=== PATIENT | male | born 1985 | race Caucasian/White ===

== ENCOUNTER 2016-09-23 14:35 | Emergency (ER) | payer BC ==
[~2016-09-23] VITALS: Ht 182.9 cm; Wt 83.0 kg
[2016-09-23 14:43] VITALS: TEMP 36.9; Ht 182.9 cm; Wt 83.0 kg
[2016-09-23] MEDS ORDERED: OPTIRAY 320 IV PRN (15:30)
[2016-09-23 15:46] LABS: BASO % 0.2 %; BASO ABS # 0.02 K/uL (0-0.2); COMPLETE YES; EOS % 1.9 %; HEMATOCRIT 45.2 % (42-52); IG% 0.2 %; LYMPH % 29.1 %; LYMPH ABS # 2.48 K/uL (1.2-3.4); MEAN CELL VOLUME 89.9 fL (80-100); MEAN CORPUSCULAR HGB CONC 34.5 g/dl (32-36); MONO % 5.5 %; NEUT % 63.1 %; PLATELET COUNT 235 K/uL (130-400); RED BLOOD COUNT 5.03 M/uL (4.7-6.1); WHITE BLOOD COUNT 8.53 K/uL (4.8-10.8)
[2016-09-23 16:06] LABS: BUN/CREATININE RATIO 17.5 (10-20); CALCIUM 9.1 mg/dl (8.5-10.1); CREATININE 0.83 mg/dl (0.60-1.40); POTASSIUM 4.1 mmol/L (3.5-5.1)
--- NOTE | 2016-09-23 17:00 | DIAGNOSTIC IMAGING REPORT ---
CT SOFT TISSUE NECK WITH CT DOSE: 435.64 mGy.cm CLINICAL HISTORY: mandibular, facial and lip swelling/redness TECHNIQUE: Helical images were acquired during intravenous administration of 94 cc of Optiray 320. COMPARISON STUDY: None. FINDINGS: The visualized portions of the lung apices are unremarkable. No thyroid masses are visualized. No salivary gland masses are visualized. Left sided retromandibular lymph nodes are the upper limits of normal in size. No necrotic lymph nodes are visualized. There are no fluid collections suspicious for abscess. There is no evidence of airway compromise. No mucosal space masses are visualized. There is right maxilla sinus mucosal thickening. There is soft tissue swelling in the perimandibular region. IMPRESSION: 1. No evidence of abscess 2. Soft tissue swelling 3. Left-sided retro-mandibular lymph nodes at the upper limits of normal in size, likely reactive Electronically signed by: Navneet Wynne M.D. 09/23/2016 4:59 PM Dictated Date/Time: 09/23/2016 4:55 PM
[2016-09-23] MEDS ORDERED: HYDR-5688 PO (17:14)
[2016-09-23] MEDS ORDERED: CEPH500C2 PO (17:14)
[2016-09-23] MEDS ORDERED: SULF800T23 PO (17:14)
[2016-09-23 18:34] VITALS: BP 125/71; PULSE 62; O2SAT 98
--- NOTE | 2016-09-24 19:56 | EMERGENCY ROOM VISIT NOTE ---
ED Visit Note First contact with patient: 14:58 Chief Complaint: Facial swelling. History of Present Illness: Mr. Montgomery is a 31-year-old white male who ambulates into the ED complaining of facial swelling. Patient was referred to the ED from a dentist; patient reports he was evaluated and the dentist felt his facial swelling was not related to a dental infection. Historically patient reports he has a previous MRSA infection that he was treated for approximately 4 weeks ago on his right arm. After treatment all his symptoms resolved. Patient reports approximately one week ago he woke up with left lower lip swelling and pain. As the week progressed he noted increasing swelling in his primary area that was now extending into the upper lip and the underside of the jaw. He felt this was a dental abscess and that's why he saw the dentist today. When he had swelling under his jaw he reports he had difficulty breathing; the swelling under the jaw has subsequently resolved and he is not experiencing any difficulty breathing. Currently he describes his discomfort as a throbbing and achy sensation and it is currently present over the left side of the upper and lower lips. He rates his discomfort 5/10. The pain is nonradiating. The pain worsens with palpation. He has not identified any alleviating factors related to the pain. He has not taken any medications for pain prior to arrival at the hospital. He denies any associated fevers, chills, sweats, other skin eruptions, other skin color changes, upper respiratory tract symptoms, cough, wheezing, sore throat, painful talking, drooling, chest pain, abdominal pain, decreased appetite, nausea, vomiting. Review of Systems: As noted above in history of present illness. 8 body systems were reviewed and found to be negative as noted above. Past Medical History: As noted above. Current Medications: Patient denies. Allergies to Medications: Patient denies. Social History: Patient is currently employed; he feels safe in his home environment; he admits to tobacco and alcohol use. Physical Examination: Vital Signs: Date Time Temp Pulse Resp B/P Pulse Ox O2 Delivery O2 Flow Rate FiO2 09/23/16 18:34 62 18 125/71 98 09/23/16 17:04 53 16 123/63 98 Room Air 09/23/16 14:43 36.9 83 16 130/76 97 Room Air GENERAL: 31-year-old female in mild to moderate distress due to pain, nontoxic- appearing, afebrile and hemodynamically stable. NEUROLOGICAL: Awake, alert and oriented to person, place and time. Answering questions appropriately and following commands. Normal gait. Good hand eye coordination. No focal motor sensory deficits. SKIN: Warm, dry and pink. Face: Swelling of the left lateral upper and lower lips. Inferior to the lower lip over the left side of the face there is erythema and tenderness but no palpable abscess. No lymphangitis. HEENT: Atraumatic and normocephalic. PERRLA. Sclera white and conjunctiva pink. Oral cavity moist and pink. No signs of intraoral trauma or infection. Airway is patent. Speech normal. No local lymphadenopathy. Trachea midline. No jugular venous distention. THORAX: Lungs sounds are clear to auscultation and equal bilaterally with symmetrical chest wall. No wheezing, rales or rhonchi. No crepitus, tenderness , subcutaneous air or deformities noted. HEART: Regular rate and rhythm. No gallops, rubs or murmurs are appreciated. ABDOMEN: Flat, soft and nontender. Positive bowel sounds in all quadrants. No guarding, rigidity or organomegaly. EXTREMITIES: Moves all extremities well on command and with purpose. All distal neurovascular statuses are intact and equal bilaterally. ED Course: Patient is assessed as noted above. Laboratory Testing: Test 09/23/16 15:35 Range/Units White Blood Count 8.53 4.8-10.8 K/uL Red Blood Count 5.03 4.7-6.1 M/uL Hemoglobin 15.6 14.0-18.0 g/dL Hematocrit 45.2 42-52 % Mean Corpuscular Volume 89.9 80-100 fL Mean Corpuscular Hemoglobin 31.0 25-34 pg Mean Corpuscular Hemoglobin Concent 34.5 32-36 g/dl Platelet Count 235 130-400 K/uL Mean Platelet Volume 9.0 7.4-10.4 fL Neutrophils (%) (Auto) 63.1 % Lymphocytes (%) (Auto) 29.1 % Monocytes (%) (Auto) 5.5 % Eosinophils (%) (Auto) 1.9 % Basophils (%) (Auto) 0.2 % Neutrophils # (Auto) 5.38 1.4-6.5 K/uL Lymphocytes # (Auto) 2.48 1.2-3.4 K/uL Monocytes # (Auto) 0.47 0.11-0.59 K/uL Eosinophils # (Auto) 0.16 0-0.5 K/uL Basophils # (Auto) 0.02 0-0.2 K/uL RDW Standard Deviation 40.0 36.4-46.3 fL RDW Coefficient of Variation 12.3 11.5-14.5 % Immature Granulocyte % (Auto) 0.2 % Immature Granulocyte # (Auto) 0.02 0.00-0.02 K/uL Sodium Level 140 136-145 mmol/L Potassium Level 4.1 3.5-5.1 mmol/L Chloride Level 104 98-107 mmol/L Carbon Dioxide Level 32 21-32 mmol/L Anion Gap 4.0 3-11 mmol/L Blood Urea Nitrogen 15 7-18 mg/dl Creatinine 0.83 0.60-1.40 mg/dl Est Creatinine Clear Calc Drug Dose 144.2 ml/min Estimated GFR () 137.8 Estimated GFR (Non- 118.9 BUN/Creatinine Ratio 17.5 10-20 Random Glucose 95 70-99 mg/dl Calcium Level 9.1 8.5-10.1 mg/dl Soft-Tissue Face CT with IV Contrast: Was reviewed by myself and read by the radiologist and shows visualized portions of the lung apices are unremarkable, no thyroid masses, no salivary gland masses, left sided retromandibular lymph nodes are at the upper limits of normal, no fluid collection suspicious for abscess is, no evidence of airway compromise, no mucosal masses, right maxillary sinus mucosal thickening, soft tissue swelling in the test conductor mandibular region. Patient was offered pain medications and refused. Patient's case was reviewed with Dr. Evans; we agreed on diagnostic approach , treatment, disposition and plan. Clinical Impression: Facial cellulitis. Decision-Making: Initially my differential diagnosis I considered facial cellulitis, facial abscess, dental abscess, Marco's Angina, soft tissue masses , lymphadenitis and other causes. Disposition: Patient discharged home in stable condition accompanied by his girlfriend; prior to departure he was reassessed and subjectively reported he was feeling the same. Plan: Patient was prescribed Keflex, Bactrim DS and [place] for his symptoms and instructed on their use; he was warned about precautions with narcotics use. Additionally his information was evaluated for the [place] database and no red flags were noted. Patient was encouraged to follow-up with family physician or return to the ED for recheck in 36-48 hours. Patient was educated on worsening signs of infection. Patient was encouraged return to the ED for any signs of worsening infection or any new/concerning symptoms.
== END 2016-09-23 18:36 | disposition home or self-care (01) ==
LOC: C.EDB 14:38 → C.EDD 18:36
DX: L03.211 Cellulitis of face (principal); Z72.0 Tobacco use

== ENCOUNTER 2016-09-26 11:34 | Emergency (ER) | payer BC ==
[~2016-09-26] VITALS: Ht 182.9 cm; Wt 85.4 kg
[~2016-09-26 11:34] MED LIST: CEPH500C2 PO; HYDR-5688 PO; SULF800T23 PO
[2016-09-26 11:36] VITALS: TEMP 36.6; Ht 182.9 cm; Wt 85.4 kg
[2016-09-26] MEDS ORDERED: IBUP1CAP9 PO (11:44)
--- NOTE | 2016-09-26 12:48 | EMERGENCY ROOM VISIT NOTE ---
ED Visit Note First contact with patient: 11:49 This Patient was discussed with the physician export sales assistant, Kei Linda PA-C. The pertinent historical and physical exam findings were confirmed. I agree with the studies ordered and with the interpretations of these studies. I agree with the disposition and care plan.
[2016-09-26] MEDS ORDERED: FLUC100T4 PO (13:11)
[2016-09-26 13:22] VITALS: BP 121/51; PULSE 68; O2SAT 98
--- NOTE | 2016-09-27 14:01 | EMERGENCY ROOM VISIT NOTE ---
ED Visit Note First contact with patient: 11:49 Chief Complaint: Infection recheck. History of Present Illness: Mr. Montgomery is a 31-year-old white male who ambulates into the ED for reevaluation of facial cellulitis from his visit on September 23. In review patient reports that 2 weeks before coming to the hospital on September 23 he had noticed some redness, left sided lip swelling and a fullness sensation under his tongue which was causing mild shortness of breath. He had a dental infection and was evaluated by a dentist and they did not feel it was dental related and referred him to the emergency department. On his initial visit laboratory results were unremarkable and showed no signs of infection with no white blood cell count elevation and normal electrolytes. A soft tissue face CT was performed and showed reactive lymph nodes but no signs of abscess or infection. He was discharged home on Keflex and Bactrim for antibiotic coverage and [place] for pain control. Her to discharge she did inform me that he did not have a family physician so he was told to come to the ED for recheck and 36-48 hours. Since leaving the ED he reports he has noted less redness and swelling but has not had complete resolution of his discomfort. Additionally he noted on the anterior aspect of the chin that he had a few small 'lumps'. He has no associated pain with his infection now but he does have tenderness. He denies any fevers, chills, sweats, other skin eruptions, other skin color changes, sore throat, difficulty speaking, difficulty swallowing, return of fullness sensation under the tongue, cough, wheezing, shortness of breath, decreased appetite, nausea/vomiting. Review of Systems: As noted above in history of present illness. 8 body systems were reviewed and found to be negative as noted above. Physical Examination: Vital Signs: Date Time Temp Pulse Resp B/P Pulse Ox O2 Delivery O2 Flow Rate FiO2 09/26/16 13:22 68 18 121/51 98 09/26/16 11:36 36.6 65 18 133/66 98 Room Air GENERAL: 31-year-old male in mild distress due to symptoms, nontoxic-appearing, afebrile and hemodynamically stable. NEUROLOGICAL: Awake, alert and oriented to person, place and time. Answering questions appropriately and following commands. SKIN: Warm, dry and pink. Face: Mild swelling of the left side of the upper and lower lips without erythema or lesions. Anterior chin is mildly erythematous and tender to palpation. There are a few small indurated lesions throughout the chin but nothing fluctuant. No pustules or papules. The area of erythema is well demarcated. This does not appear herpetic. The skin is also slightly crusty in appearance. HEENT: Atraumatic and normocephalic. No drainage from naris. Oral cavity moist and pink; no intraoral lesions. Uvula is midline. Pharynx is nonerythematous or edematous. No tonsillar hypertrophy or exudates Speech normal. No palpable lymphadenopathy. Trachea midline. No jugular venous distention. THORAX: Lungs sounds are clear to auscultation and equal bilaterally with symmetrical chest wall. ED Course: Patient is assessed as noted above. Patient's case was reviewed with Dr. Geiger; he independently assessed the patient and we discussed this case. He felt this appeared to be a fungal infection and recommended antifungal's and including his current antibiotic therapy. I did speak to the ED pharmacist recommended that the patient be placed on fluconazole 200 mg once a day for 2 weeks. Patient was educated about today's findings and instructed on his treatment plan ; he verbalizes understanding and agreement with this plan. Clinical Impression: Improving facial cellulitis. Possible fungal infection. Disposition: Patient discharged home in stable condition; prior to departure he was reassessed and subjectively reported he was pain-free. Plan: Patient was encouraged to continue his antibiotics until completed. Patient encouraged to use ibuprofen or acetaminophen as needed for pain. Patient was encouraged to use condoms all 200 mg once a day for 2 weeks. Patient was encouraged return to the ED for worsening pain, worsening skin eruptions, fevers or any new/concerning symptoms.
== END 2016-09-26 13:23 | disposition home or self-care (01) ==
LOC: C.EDB 11:35 → C.EDA 13:23
DX: L03.211 Cellulitis of face (principal); K08.89 Other specified disorders of teeth and supporting structures